=== PATIENT | male | born 1945 | race Two or more races ===

== ENCOUNTER 2016-07-27 18:14 | Inpatient (IN) | payer MEDICARE, SELFPAY ==
[2016-07-27] MEDS ORDERED: Albuterol/Ipratropium Neb 3 ML NEB NEB ONE (18:39)
[2016-07-27] MEDS ORDERED: METHYLPREDNISOLONE 125 MG/2 ML VIAL IV ONE (18:39)
[2016-07-27] MEDS ORDERED: NS 1,000 ML IV ONE ×2 (18:39→19:53)
[2016-07-27 18:48] LABS: ABG Draw Site Right Radial; ALLEN'S TEST PASS
[2016-07-27 19:11] LABS: AUTOMATED BASOPHIL 1.1 % (0-2); AUTOMATED EOSINOPHIL 10.1 % (0-5); AUTOMATED LYMPH 16.4 % (17-44); AUTOMATED MONOCYTE 5.4 % (3-10); MPV 8.7 fL (7.4-10.4)
--- NOTE | 2016-07-27 19:17 | DIRPT ---
CLINICAL DATA: Patient with cough and shortness of breath for 1 month. EXAM: PORTABLE CHEST 1 VIEW COMPARISON: Chest radiograph 05/10/2016. FINDINGS: Monitoring leads overlie the patient. Low lung volumes. Stable cardiomegaly. Bilateral mid and lower lung heterogeneous pulmonary opacities. No pleural effusion or pneumothorax. IMPRESSION: Low lung volumes. Bilateral mid and lower lung heterogeneous opacities may be secondary to atelectasis and bronchovascular crowding. Infectious process not excluded. Electronically Signed By: Nelson Gorman M.D. On: 07/27/2016 19:14
--- NOTE | 2016-07-27 19:20 | EDPRACDOC ---
- General Information Information Source: Patient - History of Present Illness Onset: 1 WEEK HPI: PT COMPLAINS OF INCREASING SOBR, NON-PROD COUGH, WHEEZING X 1 WEEK, USING NEBS WITHOUT RELIEF. PT DENIES FEVER OR CHILLS, NO N/V/D, NO CP. Shortness of Breath: Severe Relevant History: Reports: Asthma Cough: Reports: Non-productive Rhinorrhea: Denies: Clear, Bloody, Brown, Green, Purulent, None, O Ear Symptoms: Reports: None SOB Worsens with: Reports: Nothing SOB Improves with: Reports: Nothing Associated Signs and symptoms: Reports: Cough. Denies: Earache, Fever, Headache , Nasal Symptoms, Sore Throat, Nausea, Vomiting, Diarrhea, Myalgia, Rash, Pain with head movement, AMS <Chuy Ibrahim - Last Filed: 07/27/16 21:30> <Pipo Womack - Last Filed: 07/27/16 22:06> - General Information Chief Complaint: Dyspnea/Resp distress Stated Complaint: RESPIRATORY Time Seen by Provider: 07/27/16 18:36 Home Medications: Home Medications Glimepiride [Amaryl] 4 mg PO BID 08/18/15 Insulin Glargine [Lantus Pen] 40 units SQ BID 08/18/15 MetFORMIN (Immediate Release) [GLUCOPHAGE Immed Release] 1,000 mg PO BID Simvastatin [Zocor] 10 mg PO QHS 08/18/15 Carvedilol [Coreg] 12.5 mg PO BID #60 tablet 08/25/15 Furosemide [Lasix] 40 mg PO BID #60 tab 08/25/15 Amlodipine Besylate 10 mg PO DAILY 05/07/16 Losartan Potassium [Cozaar] 100 mg PO DAILY 05/07/16 Doxazosin Mesylate 1 mg PO DAILY 05/08/16 Potassium Chloride [Klor-Con M20] 20 meq PO DAILY 05/08/16 Albuterol/Ipratropium Neb [Duoneb] 3 ml NEB RTQ6 #120 nebu 05/13/16 Aspirin (Enteric Coated) [Ecotrin] 81 mg PO DAILY 07/27/16 Doxycycline Hyclate [Vibramycin] 100 mg PO BID 07/27/16 Allergies/Adverse Reactions: Allergies Allergy/AdvReac Type Severity Reaction Status Date / Time lisinopril Allergy Cough Verified 07/27/16 18:31 ED Past Medical History - History Reviewed Yes Nurses notes reviewed and agree except as marked - Patient Medical History Cardiac History: Reports: Hypertension, Congestive Heart Failure (Diastolic congestive heart failure although today his BMP is normal). Denies: Heart Attack Respiratory History: Reports: Asthma. Denies: Pneumonia GI/ History: Reports: Gastroesophageal Reflux Musculoskeletal History: Reports: Arthritis Psychological History: Denies: Depression, Anxiety, Substance Use Disorder Systemic History: Reports: Diabetes (Type 2). Denies: Cancer, Anemia, Hyperthyroidism Surgical History: Denies: Cholecystectomy, Tonsillectomy/Adnoidectomy - Family Medical History Reports: Hypertension (Brother), Diabetes (Sister). Denies: Cancer, Stroke, Cardiac Disorders - Social Medical History Smoking Status: Never smoker Social History: Denies: Substance Use Disorder ETOH: None Substance Abuse: None <Chuy Ibrahim - Last Filed: 07/27/16 21:30> EDM Review of Systems - Review of Systems Constitutional: negative: Chills, Fever Eyes: negative: Blurred Vision, Double Vision Ears: negative: Drainage Throat: negative: Pain Nose: negative: Congestion, Discharge Respiratory: Cough, Shortness of Breath, Wheezing Cardiovascular: negative: Chest Pain, Palpitations Gastrointestinal: negative: Diarrhea, Nausea, Pain, Vomiting Genitourinary: negative: Dysuria, Frequency Neurological: negative: Dizziness, Headache, Numbness, Weakness Musculoskeletal: No Symptoms Reported Integumentary: No Symptoms Reported <Chuy Ibrahim - Last Filed: 07/27/16 21:30> - Physical Exam Constitutional: Alert (Awake), No apparent distress Oriented to: Time, Person, Place Last recorded Vital Signs: Last Vital Signs Temp 98.4 F 07/27/16 18:27 Pulse 88 07/27/16 18:46 Resp 20 07/27/16 18:55 BP 152/70 07/27/16 18:46 Pulse Ox 94 07/27/16 18:46 Oxygen Pulse Oxygen Saturation 94 O2 Device Nasal Cannula Oxygen Flow Rate 2 Fraction of Inspired Oxygen ( FIO2) - HEENT Head: Normal ( normocephalic) Eye Exam: Normal (PERRL, EOMI, Sclera white) Oropharynx: Normal (Pharynx:Moist without exudate,Gums-no swelling) Tympanic Membrane: Normal ENT EAC: Normal TMJ: Normal Nose: No Symptoms Reported (septum midline) Neck: Normal (FROM, trachea at midline) - Respiratory/Cardiovascular Respiratory: Accessory Muscle Use, Wheezes Cardiovascular: Normal (RRR without murmur, gallop or rub) - GI Auscultation: Normal (NABS) Palpation: Normal (Soft,No rebound or guarding, non distended) Tenderness: Non tender Martins's Sign: Negative - Musculoskeletal Back: Normal (Non-Tender) Extremities: Normal (Normal tone, Pulses 2+ No cyanosis or edema, FROM) - Integumentary Skin: Normal, Warm, Dry Lymphatics: Normal (no adenopathy) - Neurologic Memory Impaired: Normal Motor Function: Normal (Normal tone, Pulses 2+ No cyanosis or edema, FROM) Cranial Nerve: Normal (CN II-X11 intact sensation, strength 5/5) Cerebellar: Normal Mood Description: Normal Perception: Normal <Chuy Ibrahim - Last Filed: 07/27/16 21:30> - Physical Exam Last recorded Vital Signs: Last Vital Signs Temp 98.4 F 07/27/16 18:27 Pulse 89 07/27/16 20:46 Resp 20 07/27/16 20:46 BP 149/69 07/27/16 20:46 Pulse Ox 91 07/27/16 20:46 Oxygen Pulse Oxygen Saturation 91 O2 Device Nasal Cannula Oxygen Flow Rate 2 Fraction of Inspired Oxygen ( FIO2) <Pipo Womack - Last Filed: 07/27/16 22:06> ED SOB MDM - Differential Diagnosis Differential Diagnosis: Heart Failure, Pnuemonia - Re-evaluation Re-evaluation 1 Re-evaluation Time: 19:48 (FEELS BETTER AFTER NEB) - Results Result Diagrams: 07/27/16 19:00 07/27/16 19:00 Results: WBC 8.4 xk/uL (3.8-10.8) 07/27/16 19:00 RBC 4.64 xM/uL (4.70-6.10) L 07/27/16 19:00 Hgb 11.8 g/dL (14.0-18.0) L 07/27/16 19:00 Hct 37.0 % (42-52) L 07/27/16 19:00 MCV 80 fL (80-94) 07/27/16 19:00 MCH 25.5 pg (27-32) L 07/27/16 19:00 MCHC 32.0 g/dl (33-36) L 07/27/16 19:00 RDW 16.4 % (11.5-14.5) H 07/27/16 19:00 Plt Count 206 xk/uL (130-400) 07/27/16 19:00 MPV 8.7 fL (7.4-10.4) 07/27/16 19:00 Neut % (Auto) 67.0 % (45-76) 07/27/16 19:00 Lymph % (Auto) 16.4 % (17-44) L 07/27/16 19:00 [place] % (Auto) 5.4 % (3-10) 07/27/16 19:00 Eos % (Auto) 10.1 % (0-5) H 07/27/16 19:00 Baso % (Auto) 1.1 % (0-2) 07/27/16 19:00 Absolute Neuts (auto) 5.63 xk/uL (1.7-8.2) 07/27/16 19:00 Absolute Lymphs (auto) 1.34 xk/uL (0.65-4.75) 07/27/16 19:00 Puncture Site Right radial 07/27/16 18:44 pH 7.380 pH UNITS (7.35-7.45) 07/27/16 18:44 pCO2 45.0 mmHg (35-45) 07/27/16 18:44 pO2 60.0 mmHg (80-100) L 07/27/16 18:44 HCO3 26.6 MMOL/L (22-26) H 07/27/16 18:44 Total CO2 28.0 MMOL/L (23-27) H 07/27/16 18:44 Base Excess 1.0 (+/- 2) 07/27/16 18:44 FiO2 % 21% 07/27/16 18:44 Specimen Drawn By Piksa 07/27/16 18:44 Lab Results 07/27/16 07/27/16 19:00 18:44 WBC 8.4 RBC 4.64 L Hgb 11.8 L Hct 37.0 L MCV 80 MCH 25.5 L MCHC 32.0 L RDW 16.4 H Plt Count 206 MPV 8.7 Neut % (Auto) 67.0 Lymph % (Auto) 16.4 L [place] % (Auto) 5.4 Eos % (Auto) 10.1 H Baso % (Auto) 1.1 Absolute Neuts (auto) 5.63 Absolute Lymphs (auto) 1.34 Puncture Site Right radial pH 7.380 pCO2 45.0 pO2 60.0 L HCO3 26.6 H Total CO2 28.0 H Base Excess 1.0 FiO2 % 21% Specimen Drawn By Piksa - EKG EKG #1 EKG Time: 18:42 -: Yes EKG interpreted by me Rate: bpm: 88 [place]: Normal Rhythm: NSR Block: RBBB Hypertrophy: None ST: Nonsp Comparison: 05/07/16 (NO CHANGE) - Diagnostic Imaging CXR Image interpreted by: Radiologist Diagnostic Imaging Comments: PORTABLE CHEST 1 VIEW COMPARISON: Chest radiograph 05/10/2016. FINDINGS: Monitoring leads overlie the patient. Low lung volumes. Stable cardiomegaly. Bilateral mid and lower lung heterogeneous pulmonary opacities. No pleural effusion or pneumothorax. IMPRESSION: Low lung volumes. Bilateral mid and lower lung heterogeneous opacities may be secondary to atelectasis and bronchovascular crowding. Infectious process not excluded. CTA CHEST Image interpreted by: Radiologist Diagnostic Imaging Comments: CT ANGIOGRAPHY CHEST WITH CONTRAST TECHNIQUE: Multidetector CT imaging of the chest was performed using the standard protocol during bolus administration of intravenous contrast. Multiplanar CT image reconstructions and MIPs were obtained to evaluate the vascular anatomy. CONTRAST: 100 mL Isovue 370 COMPARISON: 08/24/2015 FINDINGS: B pulmonary tear all phase contrast bolus is somewhat technically limited but there is still moderately good opacification of the central and proximal segmental pulmonary arteries. No filling defects are demonstrated in these vessels suggesting no evidence of significant pulmonary embolus. More distal peripheral pulmonary arteries are not well visualized. Normal heart size. Coronary artery calcifications. Normal caliber thoracic aorta with calcification. No aortic dissection. Esophagus is decompressed. There is lymphadenopathy throughout the mediastinum. Largest lymph nodes are present in the subcarinal region, measuring up to 2.7 cm short axis dimension. Lymphadenopathy was present previously with similar appearance to today's study. Evaluation of lungs is limited due to respiratory motion artifact. There appears to be diffuse peripheral interstitial pattern likely representing diffuse interstitial fibrosis due to usual interstitial pneumonitis. Interstitial edema or interstitial pneumonia or other possibilities. Interstitial changes were seen previously but airspace disease seen previously has resolved in the interval. There is a 3.5 mm nodule in the left lung base. This was obscured by infiltrates on the previous study and correlation is not possible. If the patient is at high risk for bronchogenic carcinoma, follow-up chest CT at 1 year is recommended. If the patient is at low risk, no follow-up is needed. This recommendation follows the consensus statement: Guidelines for Management of Small Pulmonary Nodules Detected on CT Scans: A Statement from the Fleischner Society as published in Radiology 2005; 237:395-400. Scattered calcified granulomas are demonstrated in the lungs. No focal consolidation or volume loss. No pleural effusions. No pneumothorax. Included portions of the upper abdominal organs demonstrate enlarged liver likely due to fatty infiltration. Degenerative changes in the spine. No destructive bone lesions. Review of the MIP images confirms the above findings. IMPRESSION: Contrast bolus is limited but there is no evidence of significant central pulmonary embolus. There is diffuse lymphadenopathy in the mediastinum similar to previous study. Etiology is indeterminate. Diffuse mostly peripheral interstitial pattern to the lungs may represent usual interstitial pneumonitis. Superimposed edema is not excluded. 3.5 mm nodule in the left lung base is indeterminate. See above followup recommendations. Fatty infiltration of the liver. - Additional Information Additional Information: DISCUSSED WITH DR WOMACK, WILL DISCUSS WITH HOSPITALIST <Chuy Ibrahim - Last Filed: 07/27/16 21:30> - Results Result Diagrams: 07/27/16 19:00 07/27/16 19:00 Results: WBC 8.4 xk/uL (3.8-10.8) 07/27/16 19:00 RBC 4.64 xM/uL (4.70-6.10) L 07/27/16 19:00 Hgb 11.8 g/dL (14.0-18.0) L 07/27/16 19:00 Hct 37.0 % (42-52) L 07/27/16 19:00 MCV 80 fL (80-94) 07/27/16 19:00 MCH 25.5 pg (27-32) L 07/27/16 19:00 MCHC 32.0 g/dl (33-36) L 07/27/16 19:00 RDW 16.4 % (11.5-14.5) H 07/27/16 19:00 Plt Count 206 xk/uL (130-400) 07/27/16 19:00 MPV 8.7 fL (7.4-10.4) 07/27/16 19:00 Neut % (Auto) 67.0 % (45-76) 07/27/16 19:00 Lymph % (Auto) 16.4 % (17-44) L 07/27/16 19:00 [place] % (Auto) 5.4 % (3-10) 07/27/16 19:00 Eos % (Auto) 10.1 % (0-5) H 07/27/16 19:00 Baso % (Auto) 1.1 % (0-2) 07/27/16 19:00 Absolute Neuts (auto) 5.63 xk/uL (1.7-8.2) 07/27/16 19:00 Absolute Lymphs (auto) 1.34 xk/uL (0.65-4.75) 07/27/16 19:00 PT 10.7 SEC (9.2-11.2) 07/27/16 19:00 INR 1.0 07/27/16 19:00 APTT 23.6 SEC (22-35) 07/27/16 19:00 Puncture Site Right radial 07/27/16 18:44 pH 7.380 pH UNITS (7.35-7.45) 07/27/16 18:44 pCO2 45.0 mmHg (35-45) 07/27/16 18:44 pO2 60.0 mmHg (80-100) L 07/27/16 18:44 HCO3 26.6 MMOL/L (22-26) H 07/27/16 18:44 Total CO2 28.0 MMOL/L (23-27) H 07/27/16 18:44 Base Excess 1.0 (+/- 2) 07/27/16 18:44 FiO2 % 21% 07/27/16 18:44 Specimen Drawn By Piksa 07/27/16 18:44 Sodium 140 mEq/L (137-146) 07/27/16 19:00 Potassium 4.3 mEq/L (3.5-5.1) 07/27/16 19:00 Chloride 101 mEq/L (98-107) 07/27/16 19:00 Carbon Dioxide 28 mMOL/L (22-33) 07/27/16 19:00 Anion Gap 15 mEq/L (8-16) 07/27/16 19:00 BUN 12 MG/DL (9-20) 07/27/16 19:00 Creatinine 0.90 MG/DL (0.66-1.25) 07/27/16 19:00 Estimated GFR (MDRD) > 60 mL/min (>=60) 07/27/16 19:00 Glucose 339 MG/DL (70-99) H 07/27/16 19:00 Calculated Osmolality 282 MOs/Kg (270-290) 07/27/16 19:00 Lactic Acid 3.4 mEq/L (0.7-2.1) H 07/27/16 19:00 Calcium 8.7 MG/DL (8.4-10.2) 07/27/16 19:00 Corrected Calcium 8.9 MG/DL (8.4-10.2) 07/27/16 19:00 Total Bilirubin 0.4 MG/DL (0.2-1.3) 07/27/16 19:00 AST 19 IU/L (17-59) 07/27/16 19:00 ALT 29 IU/L (21-72) 07/27/16 19:00 Alkaline Phosphatase 76 IU/L (50-160) 07/27/16 19:00 Troponin I < 0.01 ng/mL (<.04) 07/27/16 19:00 Xul-O-Grvagwdfylt Pept 94 pg/mL (0-900) 07/27/16 21:32 Total Protein 7.4 G/DL (6.3-8.2) 07/27/16 19:00 Albumin 3.8 G/DL (3.5-5.0) 07/27/16 19:00 Lab Results 07/27/16 07/27/16 07/27/16 21:32 19:00 19:00 WBC 8.4 RBC 4.64 L Hgb 11.8 L Hct 37.0 L MCV 80 MCH 25.5 L MCHC 32.0 L RDW 16.4 H Plt Count 206 MPV 8.7 Neut % (Auto) 67.0 Lymph % (Auto) 16.4 L [place] % (Auto) 5.4 Eos % (Auto) 10.1 H Baso % (Auto) 1.1 Absolute Neuts (auto) 5.63 Absolute Lymphs (auto) 1.34 PT 10.7 INR 1.0 APTT 23.6 Puncture Site pH pCO2 pO2 HCO3 Total CO2 Base Excess FiO2 % Specimen Drawn By Sodium Potassium Chloride Carbon Dioxide Anion Gap BUN Creatinine Estimated GFR (MDRD) Glucose Calculated Osmolality Lactic Acid Calcium Corrected Calcium Total Bilirubin AST ALT Alkaline Phosphatase Troponin I Hhg-O-Xsrglexthtx Pept 94 Total Protein Albumin 07/27/16 07/27/16 07/27/16 19:00 19:00 18:44 WBC RBC Hgb Hct MCV MCH MCHC RDW Plt Count MPV Neut % (Auto) Lymph % (Auto) [place] % (Auto) Eos % (Auto) Baso % (Auto) Absolute Neuts (auto) Absolute Lymphs (auto) PT INR APTT Puncture Site Right radial pH 7.380 pCO2 45.0 pO2 60.0 L HCO3 26.6 H Total CO2 28.0 H Base Excess 1.0 FiO2 % 21% Specimen Drawn By Piksa Sodium 140 Potassium 4.3 Chloride 101 Carbon Dioxide 28 Anion Gap 15 BUN 12 Creatinine 0.90 Estimated GFR (MDRD) > 60 Glucose 339 H Calculated Osmolality 282 Lactic Acid 3.4 H Calcium 8.7 Corrected Calcium 8.9 Total Bilirubin 0.4 AST 19 ALT 29 Alkaline Phosphatase 76 Troponin I < 0.01 Bjz-Y-Lfqkxbkztyc Pept Total Protein 7.4 Albumin 3.8 <Pipo Womack - Last Filed: 07/27/16 22:06> <Chuy Ibrahim - Last Filed: 07/27/16 21:30> - Departure Yes I personally saw and evaluated the patient. Disposition: Admit IP To This Hospital Education/Counseling Given To: Patient Education/Counseling Given Regarding: Diagnosis, Treatment, Prognosis Decision to Admit Time: 22:06 Decision to admit date: 07/27/16 Decision to admit: from ED - Physician Consulted Hospitalist Time Called: 22:06 Provider Called: Bruce Doe Time [employer] Returned Call: 22:06 <Pipo Womack - Last Filed: 07/27/16 22:06> - Departure Condition: Stable Final Diagnosis: Interstitial pneumonitis, Hypoxia Referrals: Jose Khan MD [Primary Care Provider] - One Week Prescriptions: No Action Glimepiride [Amaryl] 4 mg PO BID MetFORMIN (Immediate Release) [GLUCOPHAGE Immed Release] 1,000 mg PO BID Simvastatin [Zocor] 10 mg PO QHS Insulin Glargine [Lantus Pen] 40 units SQ BID Carvedilol [Coreg] 12.5 mg PO BID #60 tablet Furosemide [Lasix] 40 mg PO BID #60 tab Losartan Potassium [Cozaar] 100 mg PO DAILY Amlodipine Besylate 10 mg PO DAILY Potassium Chloride [Klor-Con M20] 20 meq PO DAILY Doxazosin Mesylate 1 mg PO DAILY Albuterol/Ipratropium Neb [Duoneb] 3 ml NEB RTQ6 #120 nebu Aspirin (Enteric Coated) [Ecotrin] 81 mg PO DAILY Doxycycline Hyclate [Vibramycin] 100 mg PO BID
[2016-07-27 19:21] LABS: BLOOD UREA NITROGEN 12 MG/DL (9-20); CALC CORRECTED 8.9 MG/DL (8.4-10.2); CALCIUM 8.7 MG/DL (8.4-10.2); CALCULATED OSMOLALITY 282 MOs/Kg (270-290); CHLORIDE 101 mEq/L (98-107); GLUCOSE 339 MG/DL (70-99); SODIUM LEVEL 140 mEq/L (137-146); TOTAL PROTEIN 7.4 G/DL (6.3-8.2)
[2016-07-27 19:23] LABS: PARTIAL THROMB. TIME 23.6 SEC (22-35)
[2016-07-27] MEDS ORDERED: Levofloxacin 500 mg/100 ml D5W 500 MG/100 ML RTU IV ONE (19:53)
[2016-07-27] MEDS ORDERED: Pharmacy Review for Metformin - IV Contrast Given SCH (21:00)
--- NOTE | 2016-07-27 21:14 | DIRPT ---
CLINICAL DATA: Shortness of breath for 2 days. History of CHF, hypertension, diabetes. EXAM: CT ANGIOGRAPHY CHEST WITH CONTRAST TECHNIQUE: Multidetector CT imaging of the chest was performed using the standard protocol during bolus administration of intravenous contrast. Multiplanar CT image reconstructions and MIPs were obtained to evaluate the vascular anatomy. CONTRAST: 100 mL Isovue 370 COMPARISON: 08/24/2015 FINDINGS: B pulmonary tear all phase contrast bolus is somewhat technically limited but there is still moderately good opacification of the central and proximal segmental pulmonary arteries. No filling defects are demonstrated in these vessels suggesting no evidence of significant pulmonary embolus. More distal peripheral pulmonary arteries are not well visualized. Normal heart size. Coronary artery calcifications. Normal caliber thoracic aorta with calcification. No aortic dissection. Esophagus is decompressed. There is lymphadenopathy throughout the mediastinum. Largest lymph nodes are present in the subcarinal region, measuring up to 2.7 cm short axis dimension. Lymphadenopathy was present previously with similar appearance to today's study. Evaluation of lungs is limited due to respiratory motion artifact. There appears to be diffuse peripheral interstitial pattern likely representing diffuse interstitial fibrosis due to usual interstitial pneumonitis. Interstitial edema or interstitial pneumonia or other possibilities. Interstitial changes were seen previously but airspace disease seen previously has resolved in the interval. There is a 3.5 mm nodule in the left lung base. This was obscured by infiltrates on the previous study and correlation is not possible. If the patient is at high risk for bronchogenic carcinoma, follow-up chest CT at 1 year is recommended. If the patient is at low risk, no follow-up is needed. This recommendation follows the consensus statement: Guidelines for Management of Small Pulmonary Nodules Detected on CT Scans: A Statement from the Fleischner Society as published in Radiology 2005; 237:395-400. Scattered calcified granulomas are demonstrated in the lungs. No focal consolidation or volume loss. No pleural effusions. No pneumothorax. Included portions of the upper abdominal organs demonstrate enlarged liver likely due to fatty infiltration. Degenerative changes in the spine. No destructive bone lesions. Review of the MIP images confirms the above findings. IMPRESSION: Contrast bolus is limited but there is no evidence of significant central pulmonary embolus. There is diffuse lymphadenopathy in the mediastinum similar to previous study. Etiology is indeterminate. Diffuse mostly peripheral interstitial pattern to the lungs may represent usual interstitial pneumonitis. Superimposed edema is not excluded. 3.5 mm nodule in the left lung base is indeterminate. See above followup recommendations. Fatty infiltration of the liver. Electronically Signed By: Mejia Le M.D. On: 07/27/2016 21:12
[2016-07-27 22:46] LABS: LEUKOCYTES/URINE NEG (NEGATIVE); NITRITE/URINE NEG (NEGATIVE); RBC/URINE 0-2 (0-2); URINE OCCULT BLOOD NEG (NEG/TRACE); WBC/URINE 0-2 (0-2)
--- NOTE | 2016-07-27 23:45 | HISTPHYS ---
- Chief Complaint shortness of breath - History of Present Illness PRIMARY CARE PROVIDER: Dr. Khan HPI: The patient is a 70 yo man, life-long non-smoker, who presents with shortness of breath and severe coughing. Mild chest pain but only when he coughs. He reports that he has had other episodes of the severe coughing with shortness of breath, and was hospitalized for it several years ago, but he thinks that it was never really determined what was causing the problem. A former primary care physician told him that it was due to allergies and from breathing the air in [facility] (where he lived until about 3 years ago). He was also told that he has asthma, but he does not believe that; he had an old inhaler at his house and started using it recently because he was more short of breath. He has been tested for sleep apnea, and reports that he did try a mask, but he just does not believe he has sleep apnea (although he reports the test was positive). He states that he wants to get to the bottom of this mystery of what is causing these periodic episodes of severe coughing and shortness of breath. Onset: Shortness of breath became severe and coughing became severe today. Worsening over the last week. Chest pain most recently last night. Worse over the last 3 years since he moved from [facility]. Duration: intermittent. Location: entire anterior chest. Radiation: to back. Character: 02/06. Is only with cough. Is sharp. Alleviated by: Nothing. Exacerbated by: coughing. Associated Symptoms: Cough is non-productive most of the time - can have fits of coughing that are so severe that his family looks at him and wonders what is happening. Sometimes does have thick sputum. Wheezing. He has never seen anybody do something like he does when he gets a coughing fit. Sometimes worse with lying flat but not all the time. Sometimes it sounds like he has "a little cat inside saying 'whee, whee.'" Occasional lower extremity edema but not severe. No major weight changes. Treatments: He was given a prescription for doxycycline for his respiratory infection and has been taking it. Same thing happened 2 years ago. Had severe coughing. Will get better for awhile and then 3 months later or so it will get worse again. Was told he had asthma around 30 yo. It seemed to resolve but now he has worsening shortness of breath. - Medical History Cardiac History: Reports: Hypertension, Congestive Heart Failure (Diastolic congestive heart failure (hx of)). Denies: Heart Attack Respiratory History: Reports: Asthma (at 30 yo, resolved, then returned.). Denies: Pneumonia GI/ History: Reports: Gastroesophageal Reflux Musculoskeletal History: Reports: Arthritis Systemic History: Reports: Diabetes (Type 2) - Medictions/Allergies Allergies lisinopril Allergy (Verified 07/27/16 18:31) Cough Current Medication List: Reviewed Home Medications Glimepiride [Amaryl] 4 mg PO BID 08/18/15 Insulin Glargine [Lantus Pen] 40 units SQ BID 08/18/15 MetFORMIN (Immediate Release) [GLUCOPHAGE Immed Release] 1,000 mg PO BID Simvastatin [Zocor] 10 mg PO QHS 08/18/15 Carvedilol [Coreg] 12.5 mg PO BID #60 tablet 08/25/15 Furosemide [Lasix] 40 mg PO BID #60 tab 08/25/15 Amlodipine Besylate 10 mg PO DAILY 05/07/16 Losartan Potassium [Cozaar] 100 mg PO DAILY 05/07/16 Doxazosin Mesylate 1 mg PO DAILY 05/08/16 Potassium Chloride [Klor-Con M20] 20 meq PO DAILY 05/08/16 Albuterol/Ipratropium Neb [Duoneb] 3 ml NEB RTQ6 #120 nebu 05/13/16 Aspirin (Enteric Coated) [Ecotrin] 81 mg PO DAILY 07/27/16 Doxycycline Hyclate [Vibramycin] 100 mg PO BID 07/27/16 - Family History Reports: Hypertension (Brother), Diabetes (Sister) - Social History Smoking Status: Never smoker Social History: Denies: Alcohol Use, Substance Use Disorder - Review of Systems GENERAL: No Fever, chills, or diaphoresis. Positive for fatigue/malaise. HEENT: No nasal discharge or bleeding. No throat pain or swelling. No eye pain or eye redness. RESPIRATORY: Cough, wheezing, shortness of breath. CARDIOVASCULAR: Chest pain with coughing. No palpitations. GI: No abdominal pain, nausea, vomiting, diarrhea, constipation, or bloody stool. NEUROLOGICAL: No headache or focal weakness. INTEGUMENT: no rashes, itching, or lesions. LYMPHATIC SYSTEM: no lymph node swelling or pain. MUSCULOSKELETAL: no new pain or joint swelling. GENITOURINARY: No dysuria or hematuria. ENDOCRINE: No polyuria or polydipsia. HEME: No chronic anemia, bleeding, or easy bruising. - Physical Exam Vital Signs: Initial Vitals Temperature 98.4 F 07/27/16 18:27 Pulse Rate 84 07/27/16 18:27 Respiratory Rate 22 07/27/16 18:27 Blood Pressure 163/72 07/27/16 18:27 Pulse Oxygen Saturation 89 L 07/27/16 18:27 Weight: 91.8 kg Height: 5 feet 7 inches BMI: 31.7 - Other Exam Other Exam Findings: GENERAL: Ill-appearing, obese, in acute distress. HEENT: Normocephalic, atraumatic; pupils equal and round. Nares patent, without discharge or bleeding. No oropharyngeal lesions or erythema. Mucous membranes are dry. NECK: is supple, no masses, trachea midline. Large neck circumference. RESPIRATORY: Clear to auscultation bilaterally. Chest wall movements are symmetric. No use of accessory muscles to breathe. Tachypnea. Bilateral rales. Decreased breath sounds. CARDIOVASCULAR: Normal S1, S2. No rubs, or gallops. PMI non-displaced. Carotids : no carotid bruits. No bradycardia or tachycardia. DP pulses 2+ bilaterally. GI: soft, nontender, non-distended, normal active bowel sounds. No hepatosplenomegaly. INTEGUMENT: Clean, dry, and intact. No rashes. No lesions. MUSCULOSKELETAL: Moving all extremities. No cyanosis. No clubbing. Edema: Trace lower extremity edema bilaterally. NEUROLOGICAL: Cranial nerves 2-12 grossly intact. Motor 4/5 throughout. Reflexes : 2+ bilaterally. Babinski: toes downgoing bilaterally. Intact Finger to nose. Sensory grossly intact to light touch. Intact rapid alternating movements bilaterally. No pronator drift. PSYCHIATRIC: Fully oriented. Normal and appropriate affect. LYMPHATIC: No cervical lymphadenopathy. No supraclavicular lymphadenopathy. - Lab Results Laboratory Results - last 24 hr 07/27/16 07/27/16 07/27/16 18:44 19:00 19:00 WBC RBC Hgb Hct MCV MCH MCHC RDW Plt Count MPV Neut % (Auto) Lymph % (Auto) [place] % (Auto) Eos % (Auto) Baso % (Auto) Absolute Neuts (auto) Absolute Lymphs (auto) PT INR APTT Puncture Site Right radial pH 7.380 pCO2 45.0 pO2 60.0 L HCO3 26.6 H Total CO2 28.0 H Base Excess 1.0 FiO2 % 21% Specimen Drawn By [place] Sodium 140 Potassium 4.3 Chloride 101 Carbon Dioxide 28 Anion Gap 15 BUN 12 Creatinine 0.90 Estimated GFR (MDRD) > 60 Glucose 339 H POC Capillary Glucose Hemoglobin A1c Calculated Osmolality 282 Lactic Acid 3.4 H Calcium 8.7 Corrected Calcium 8.9 Total Bilirubin 0.4 AST 19 ALT 29 Alkaline Phosphatase 76 Troponin I < 0.01 [id number]-Yynmtysktce Pept Total Protein 7.4 Albumin 3.8 Urine Color Urine Clarity Urine pH Ur Specific [place] Urine Protein Urine Glucose (UA) Urine Ketones Urine Occult Blood Urine Nitrite Urine Bilirubin Urine Urobilinogen Ur Leukocyte Esterase Urine RBC Urine WBC 07/27/16 07/27/16 07/27/16 19:00 19:00 21:32 WBC 8.4 RBC 4.64 L Hgb 11.8 L Hct 37.0 L MCV 80 MCH 25.5 L MCHC 32.0 L RDW 16.4 H Plt Count 206 MPV 8.7 Neut % (Auto) 67.0 Lymph % (Auto) 16.4 L [place] % (Auto) 5.4 Eos % (Auto) 10.1 H Baso % (Auto) 1.1 Absolute Neuts (auto) 5.63 Absolute Lymphs (auto) 1.34 PT 10.7 INR 1.0 APTT 23.6 Puncture Site pH pCO2 pO2 HCO3 Total CO2 Base Excess FiO2 % Specimen Drawn By Sodium Potassium Chloride Carbon Dioxide Anion Gap BUN Creatinine Estimated GFR (MDRD) Glucose POC Capillary Glucose Hemoglobin A1c Calculated Osmolality Lactic Acid Calcium Corrected Calcium Total Bilirubin AST ALT Alkaline Phosphatase Troponin I [id number]-Txpeiqrshoj Pept 94 Total Protein Albumin Urine Color Urine Clarity Urine pH Ur Specific [place] Urine Protein Urine Glucose (UA) Urine Ketones Urine Occult Blood Urine Nitrite Urine Bilirubin Urine Urobilinogen Ur Leukocyte Esterase Urine RBC Urine WBC 07/27/16 07/27/16 07/27/16 22:19 22:30 23:15 WBC RBC Hgb Hct MCV MCH MCHC RDW Plt Count MPV Neut % (Auto) Lymph % (Auto) [place] % (Auto) Eos % (Auto) Baso % (Auto) Absolute Neuts (auto) Absolute Lymphs (auto) PT INR APTT Puncture Site pH pCO2 pO2 HCO3 Total CO2 Base Excess FiO2 % Specimen Drawn By Sodium Potassium Chloride Carbon Dioxide Anion Gap BUN Creatinine Estimated GFR (MDRD) Glucose POC Capillary Glucose Hemoglobin A1c Calculated Osmolality Lactic Acid 2.8 H Calcium Corrected Calcium Total Bilirubin AST ALT Alkaline Phosphatase Troponin I < 0.01 [id number] Pept Total Protein Albumin Urine Color Yellow Urine Clarity Clear Urine pH 6.0 Ur Specific [place] 1.010 Urine Protein 2+ H Urine Glucose (UA) 3+ Urine Ketones Neg Urine Occult Blood Neg Urine Nitrite Neg Urine Bilirubin Neg Urine Urobilinogen <2.0 Ur Leukocyte Esterase Neg Urine RBC 0-2 Urine WBC 0-2 - Diagnostic Findings EK beats per minute. Normal sinus rhythm. Right bundle branch block. Reviewed EKG personally. Chest x-ray, viewed personally: EXAM: PORTABLE CHEST 1 VIEW COMPARISON: Chest radiograph 05/10/2016. FINDINGS: Monitoring leads overlie the patient. Low lung volumes. Stable cardiomegaly. Bilateral mid and lower lung heterogeneous pulmonary opacities. No pleural effusion or pneumothorax. IMPRESSION: Low lung volumes. Bilateral mid and lower lung heterogeneous opacities may be secondary to atelectasis and bronchovascular crowding. Infectious process not excluded. CTA Chest: EXAM: CT ANGIOGRAPHY CHEST WITH CONTRAST TECHNIQUE: Multidetector CT imaging of the chest was performed using the standard protocol during bolus administration of intravenous contrast. Multiplanar CT image reconstructions and MIPs were obtained to evaluate the vascular anatomy. CONTRAST: 100 mL Isovue 370 COMPARISON: 08/24/2015 FINDINGS: B pulmonary tear all phase contrast bolus is somewhat technically limited but there is still moderately good opacification of the central and proximal segmental pulmonary arteries. No filling defects are demonstrated in these vessels suggesting no evidence of significant pulmonary embolus. More distal peripheral pulmonary arteries are not well visualized. Normal heart size. Coronary artery calcifications. Normal caliber thoracic aorta with calcification. No aortic dissection. Esophagus is decompressed. There is lymphadenopathy throughout the mediastinum. Largest lymph nodes are present in the subcarinal region, measuring up to 2.7 cm short axis dimension. Lymphadenopathy was present previously with similar appearance to today's study. Evaluation of lungs is limited due to respiratory motion artifact. There appears to be diffuse peripheral interstitial pattern likely representing diffuse interstitial fibrosis due to usual interstitial pneumonitis. Interstitial edema or interstitial pneumonia or other possibilities. Interstitial changes were seen previously but airspace disease seen previously has resolved in the interval. There is a 3.5 mm nodule in the left lung base. This was obscured by infiltrates on the previous study and correlation is not possible. If the patient is at high risk for bronchogenic carcinoma, follow-up chest CT at 1 year is recommended. If the patient is at low risk, no follow-up is needed. This recommendation follows the consensus statement: Guidelines for Management of Small Pulmonary Nodules Detected on CT Scans: A Statement from the Fleischner Society as published in Radiology 2005; 237:395-400. Scattered calcified granulomas are demonstrated in the lungs. No focal consolidation or volume loss. No pleural effusions. No pneumothorax. Included portions of the upper abdominal organs demonstrate enlarged liver likely due to fatty infiltration. Degenerative changes in the spine. No destructive bone lesions. Review of the MIP images confirms the above findings. IMPRESSION: Contrast bolus is limited but there is no evidence of significant central pulmonary embolus. There is diffuse lymphadenopathy in the mediastinum similar to previous study. Etiology is indeterminate. Diffuse mostly peripheral interstitial pattern to the lungs may represent usual interstitial pneumonitis. Superimposed edema is not excluded. 3.5 mm nodule in the left lung base is indeterminate. See above followup recommendations. Fatty infiltration of the liver. - Assessment (1) Interstitial lung disease J84.9 - INTERSTITIAL PULMONARY DISEASE, UNSPECIFIED Acute Present on Admission: Yes CT scan suggests interstitial lung disease. May be the etiology of his recurrent shortness of breath. Plan: IV methylprednisolone. Consider pulmonology consult. Will need further workup. (2) Hypoxemia R09.02 - HYPOXEMIA Acute Present on Admission: Yes Plan: Patient was tachypneic on NC O2. Change to Venti mask 40% and increase as needed. (3) Lactic acid acidosis E87.2 - ACIDOSIS Acute Present on Admission: Yes Etiology unclear. Plan: Cultures ordered. Monitor for infection. Patient had been taking doxycycline as an outpatient. IV Levaquin empirically. (4) Abnormal CT scan, chest R93.8 - ABNORMAL FINDINGS ON DIAGNOSTIC IMAGING OF BODY STRUCTURES Acute Present on Admission: Yes IMPRESSION: Contrast bolus is limited but there is no evidence of significant central pulmonary embolus. There is diffuse lymphadenopathy in the mediastinum similar to previous study. Etiology is indeterminate. Diffuse mostly peripheral interstitial pattern to the lungs may represent usual interstitial pneumonitis. Superimposed edema is not excluded. 3.5 mm nodule in the left lung base is indeterminate. See above followup recommendations. Fatty infiltration of the liver Plan: Patient informed of results. Follow up with primary care and rn acute care for further evaluation. (5) Asthma, mild intermittent J45.20 - MILD INTERMITTENT ASTHMA, UNCOMPLICATED Acute Present on Admission: Yes Qualifiers: Asthma complication type: with acute exacerbation Qualified Code(s): J45.21 - Mild intermittent asthma with (acute) exacerbation Asthma exacerbation. Cough variant. Patient does not believe this is his diagnosis. Suspect asthma is contributing. Plan: Nebs. IV methylprednisolone. Consult rn acute care. (6) Obstructive sleep apnea G47.33 - OBSTRUCTIVE SLEEP APNEA (ADULT) (PEDIATRIC) Acute Present on Admission: Yes Patient also does not believe he has this diagnosis. Plan: CPAP at night. Follow up with Dr. Lafleur. - Plan Patient is very interested in the cause of his recurrent episodes of coughing and shortness of breath. Recommend rn acute care evaluate patient and discuss the possible diagnoses with him. Also recommend rn acute care explain to patient that he does have MARÍA (if in fact the study was positive). Case Care Discussed with: Patient, Nursing Staff Total Time: 60 min.
[2016-07-28] MEDS ORDERED: BENZONATATE 100 MG PERLES PO PRN (01:34)
[2016-07-28] MEDS ORDERED: GUAIFEN 100 MG-DEXTROMETH 10 MG PER 5 ML PO PRN (01:34)
[2016-07-28] MEDS ORDERED: TEMAZEPAM 15 MG CAP PO PRN (01:34)
[2016-07-28] MEDS ORDERED: ONDANSETRON HCL 4 MG/2 ML VIAL IV PRN (01:34)
[2016-07-28] MEDS ORDERED: Docusate Sodium 100 MG CAP PO PRN (01:34)
[2016-07-28] MEDS ORDERED: GLUCOSE (ORAL GEL) 15 GM TUBE PO PRN (01:34)
[2016-07-28] MEDS ORDERED: ACETAMINOPHEN 325 MG/TAB TABLET PO PRN (01:34)
[2016-07-28] MEDS ORDERED: SIMETHICONE 80 MG TAB PO PRN (01:34)
[2016-07-28] MEDS ORDERED: DEXTROSE 25 GM/50 ML PFS IV PRN (01:34)
[2016-07-28] MEDS ORDERED: GLUCAGON 1 MG VIAL SQ PRN (01:34)
[2016-07-28] MEDS ORDERED: ALBUTEROL 0.083% 3 ML NEB NEB PRN (01:34)
[2016-07-28] MEDS ORDERED: ACETAMINOPHEN 325 MG SUPP PR PRN (01:34)
[2016-07-28] MEDS ORDERED: PROMETHAZINE 25 MG/ML VIAL IV PRN (01:34)
[2016-07-28] MEDS ORDERED: BISACODYL 5 MG TAB PO PRN (01:34)
[2016-07-28] MEDS ORDERED: SENNA CONCENTRATE TAB PO PRN (01:34)
[2016-07-28] MEDS ORDERED: GLARGINE INSULIN (LANTUS) 100 UNITS/ML PEN SQ SCH ×3 (02:00→09:00)
[2016-07-28 02:38] LABS: MPV 8.8 fL (7.4-10.4)
[2016-07-28] MEDS: Albuterol/Ipratropium Neb 3 ML NEB NEB SCH ×4 (02:40→19:48)
[2016-07-28 02:43] LABS: BLOOD UREA NITROGEN 13 MG/DL (9-20); CALC CORRECTED 8.6 MG/DL (8.4-10.2); CALCIUM 8.3 MG/DL (8.4-10.2); CALCULATED OSMOLALITY 286 MOs/Kg (270-290); CHLORIDE 102 mEq/L (98-107); SODIUM LEVEL 139 mEq/L (137-146); TOTAL PROTEIN 7.3 G/DL (6.3-8.2)
[2016-07-28 02:52] LABS: GLUCOSE 430 MG/DL (70-99)
[2016-07-28] MEDS: REGULAR INSULIN 100 UNITS/ML - 3 ML VIAL SQ SCH ×8 (02:53→23:38)
[2016-07-28] MEDS: ENOXAPARIN 40 MG/0.4 ML PFS SQ SCH ×2 (02:54→20:51)
[2016-07-28] MEDS ORDERED: Vaccine Screening Complete SCH (04:00)
[2016-07-28] MEDS ORDERED: REGULAR INSULIN 100 UNITS/ML - 3 ML VIAL SQ SCH (07:00)
[2016-07-28] MEDS: CARVEDILOL 12.5 MG TAB PO SCH ×2 (08:33→20:50)
[2016-07-28] MEDS: FUROSEMIDE 40 MG TAB PO SCH ×2 (08:33→17:33)
[2016-07-28] MEDS: AMLODIPINE 10 MG TAB PO SCH (08:34)
[2016-07-28] MEDS: LOSARTAN POTASSIUM 50 MG TAB PO SCH (08:34)
[2016-07-28] MEDS ORDERED: DOXAZOSIN MESYLATE 1 MG TAB PO SCH (09:00)
[2016-07-28] MEDS ORDERED: Non-Formulary Medication ITEM (Losartan Potassium [Cozaar] 100 MG) PO SCH (09:00)
--- NOTE | 2016-07-28 10:47 | GENMEDPROG ---
Subjective Note: Patient in bed responsive follows commands. Short of breath tight in the chest and wheezy. Coughing producing small of sputum no hemoptysis. blod ssugar on higher side.denies any pains. Notes Reviewed: Yes Events from last night noted and discussed with Clinical Staff Current Medication List: Reviewed Currently: Reports: Cough, Wheezing, BEAVERS, SOB, Sputum, Reflux Sx DVT Prophylaxis: Yes - Physical Examination Vital Signs and I&O: Last Vital Signs Temp 97.6 F 07/28/16 08:02 Pulse 95 07/28/16 08:02 Resp 22 07/28/16 08:02 BP 143/72 07/28/16 08:02 Pulse Ox 99 07/28/16 08:02 Oxygen Pulse Oxygen Saturation 99 O2 Device Nasal Cannula Oxygen Flow Rate 2 Fraction of Inspired Oxygen ( 40 FIO2) Intake & Output 07/25/16 07/26/16 07/27/16 07/28/16 23:59 23:59 23:59 23:59 Intake Total 2100 Output Total 1650 Balance 450 Patient's weight 91.824 kg General: Alert, Oriented x3, Cooperative, Mild distress HEENT: Normal, PERRLA, EOMI, Anicteric Sclera Neck: Non-tender, No Masses palpable, Limited range of motion Lymphatics: Normal (no adenopathy) Respiratory: Accessory Muscle Use, Wheezes Cardiovascular: Regular rate, Normal S1, Normal S2, Murmurs GI: Normal bowel sounds, Soft, Non tender Extremities/Musculoskeletal: Normal pulses, DJD Skin: Warm,Dry and Intact, No rashes, No breakdown, No significant lesion Neurological: Normal speech, Normal tone, Cranial nerves 3-12 NL Psych/Mental Status: Anxious Allergies lisinopril Allergy (Verified 07/27/16 18:31) Cough 07/28/16 02:10 07/28/16 02:10 - Assessment (1) Acute and chronic respiratory failure with hypoxia Acute J96.21 - ACUTE AND CHRONIC RESPIRATORY FAILURE WITH HYPOXIA Comment/ Plan: Continue O2 nebs and pulmonary toilet. Continue IV steroids. Consult Pulmonary. Add inhaled steroids. (2) Pulmonary fibrosis Acute J84.10 - PULMONARY FIBROSIS, UNSPECIFIED Comment/Plan: Continue IV steroids again consult Pulmonary. Continue nebs and inhaled steroids as well. Add Singulair. (3) Type 2 diabetes mellitus with hyperglycemia Chronic E11.65 - TYPE 2 DIABETES MELLITUS WITH HYPERGLYCEMIA Qualifiers: Diabetes mellitus custodial insulin use: with custodial use Qualified Code( s): E11.65 - Type 2 diabetes mellitus with hyperglycemia; Z79.4 - USP ( current) use of insulin Comment/Plan: Poorly controlled, hemoglobin A1c 11.9. Adjust insulin continue ADA diet. (4) HTN (hypertension) Acute I10 - ESSENTIAL (PRIMARY) HYPERTENSION Qualifiers: Hypertension type: essential hypertension Qualified Code(s): I10 - Essential (primary) hypertension Comment/Plan: Continue meds keep SBP less than 140 (5) GERD (gastroesophageal reflux disease) Acute K21.9 - GASTRO-ESOPHAGEAL REFLUX DISEASE WITHOUT ESOPHAGITIS Qualifiers: Esophagitis presence: without esophagitis Qualified Code(s): K21.9 - Gastro -esophageal reflux disease without esophagitis Comment/Plan: Continue PPI (6) Abnormal CT scan, chest Acute R93.8 - ABNORMAL FINDINGS ON DIAGNOSTIC IMAGING OF BODY STRUCTURES Comment/Plan: Pulmonary to see (7) Dyslipidemia Acute E78.5 - HYPERLIPIDEMIA, UNSPECIFIED Comment/Plan: Continue Zocor Case Care Discussed with: Patient, Consultants, Nursing Staff, Chemical Equipment Controller Education/Counseling Given To: Patient Education/Counseling Given Regarding: Diagnosis, Treatment, Prognosis, Follow Up Total Time: 50 min . Critical Care: No Code: 83567 (12+)
[2016-07-28] MEDS ORDERED: FLUTICASONE/SALMETEROL 500/50 DISKUS INH SCH (12:00)
[2016-07-28] MEDS: POTASSIUM CHLORIDE 20 MEQ TAB PO SCH (12:33)
[2016-07-28] MEDS: METHYLPREDNISOLONE 40 MG/1 ML VIAL IV SCH ×2 (12:37→17:33)
[2016-07-28] MEDS: PANTOPRAZOLE 40 MG TAB PO SCH (17:33)
[2016-07-28] MEDS: FLUTICASONE/SALMETEROL 500/50 DISKUS INH SCH (19:49)
[2016-07-28] MEDS ORDERED: Levofloxacin 750 mg/150 ml D5W 750 MG/150 ML RTU IV SCH (20:00)
[2016-07-28] MEDS: GLARGINE INSULIN (LANTUS) 100 UNITS/ML PEN SQ SCH (20:52)
[2016-07-28] MEDS ORDERED: SIMVASTATIN 10 MG TAB PO SCH (21:00)
[2016-07-28] MEDS ORDERED: MONTELUKAST SODIUM 10 MG TAB PO SCH (21:00)
[2016-07-29] MEDS: Albuterol/Ipratropium Neb 3 ML NEB NEB SCH ×3 (01:49→14:48)
[2016-07-29 03:48] LABS: BLOOD UREA NITROGEN 17 MG/DL (9-20); CALCIUM 8.7 MG/DL (8.4-10.2); CALCULATED OSMOLALITY 276 MOs/Kg (270-290); CHLORIDE 99 mEq/L (98-107); GLUCOSE 277 MG/DL (70-99); SODIUM LEVEL 137 mEq/L (137-146)
[2016-07-29] MEDS: METHYLPREDNISOLONE 40 MG/1 ML VIAL IV SCH ×2 (03:50→11:17)
[2016-07-29 04:51] VITALS: BMI 31.4
[2016-07-29] MEDS: PANTOPRAZOLE 40 MG TAB PO SCH (05:06)
[2016-07-29] MEDS: REGULAR INSULIN 100 UNITS/ML - 3 ML VIAL SQ SCH ×2 (05:06→11:18)
[2016-07-29 05:19] LABS: ABG Draw Site Right Radial; ALLEN'S TEST PASS; BEb 4.4 (+/- 2); TCO2 32.4 MMOL/L (23-27)
[2016-07-29] MEDS: FLUTICASONE/SALMETEROL 500/50 DISKUS INH SCH (08:05)
[2016-07-29] MEDS: CARVEDILOL 12.5 MG TAB PO SCH (09:19)
[2016-07-29] MEDS: LOSARTAN POTASSIUM 50 MG TAB PO SCH (09:19)
[2016-07-29] MEDS: FUROSEMIDE 40 MG TAB PO SCH (09:20)
[2016-07-29] MEDS: AMLODIPINE 10 MG TAB PO SCH (09:20)
[2016-07-29] MEDS: GLARGINE INSULIN (LANTUS) 100 UNITS/ML PEN SQ SCH (09:21)
[2016-07-29 11:12] VITALS: BP 148/81; TEMP 97.6
[2016-07-29] MEDS: POTASSIUM CHLORIDE 20 MEQ TAB PO SCH (11:17)
[2016-07-29 11:38] VITALS: PULSE 72
--- NOTE | 2016-07-29 12:45 | GENMEDPROG ---
Currently: Reports: Cough, Wheezing, BEAVERS, SOB, Sputum, Reflux Sx DVT Prophylaxis: Yes - Physical Examination Vital Signs and I&O: Last Vital Signs Temp 97.6 F 07/29/16 11:11 Pulse 72 07/29/16 11:37 Resp 18 07/29/16 11:11 BP 148/81 07/29/16 11:11 Pulse Ox 98 07/29/16 11:11 Oxygen Pulse Oxygen Saturation 98 O2 Device Nasal Cannula Oxygen Flow Rate 2 Fraction of Inspired Oxygen ( 40 FIO2) Intake & Output 07/26/16 07/27/16 07/28/16 07/29/16 23:59 23:59 23:59 23:59 Intake Total 2580 Output Total 2975 Balance -395 Patient's weight 91.824 kg 91.036 kg General: Alert, Oriented x3, Cooperative, Mild distress HEENT: Normal, PERRLA, EOMI, Anicteric Sclera Neck: Non-tender, No Masses palpable, Limited range of motion Lymphatics: Normal (no adenopathy) Respiratory: Accessory Muscle Use, Wheezes Cardiovascular: Regular rate, Normal S1, Normal S2, Murmurs GI: Normal bowel sounds, Soft, Non tender Extremities/Musculoskeletal: Normal pulses, DJD Skin: Warm,Dry and Intact, No rashes, No breakdown, No significant lesion Neurological: Normal speech, Normal tone, Cranial nerves 3-12 NL Psych/Mental Status: Anxious
--- NOTE | 2016-07-29 13:26 | PCM.DCS92 ---
- Final/Secondary Discharge Diagnosis (1) Acute and chronic respiratory failure with hypoxia Acute J96.21 - ACUTE AND CHRONIC RESPIRATORY FAILURE WITH HYPOXIA Present on Admission: Yes Comment: Continue O2 nebs and pulmonary toilet. Continue steroid taper. Add inhaled steroids. Follow up with Dr. Lafleur in his office. (2) Interstitial lung disease Acute J84.9 - INTERSTITIAL PULMONARY DISEASE, UNSPECIFIED Present on Admission: Yes Comment: CT scan suggests interstitial lung disease. May be the etiology of his recurrent shortness of breath. Unclear if this is asthma, pulmonary fibrosis, or acute pneumonitis. He has had pulmonology consult and bronchoscopy. Continue steroid taper and PO antibiotics. Follow up with Dr. Lafleur in his office. (3) Lower respiratory infection Acute J22 - UNSPECIFIED ACUTE LOWER RESPIRATORY INFECTION Present on Admission: Yes Comment: Discharge on p.o. 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 Adjust insulin, continue ADA diet, F/U with Dr. Khan in office. (5) HTN (hypertension) Acute I10 - ESSENTIAL (PRIMARY) HYPERTENSION Present on Admission: Yes essential hypertension I10 - Essential (primary) hypertension Comment: Continue meds (amlodipine, Losartan, Coreg) keep SBP less than 140 (6) GERD (gastroesophageal reflux disease) Acute K21.9 - GASTRO-ESOPHAGEAL REFLUX DISEASE WITHOUT ESOPHAGITIS Present on Admission: Yes without esophagitis K21.9 - Gastro-esophageal reflux disease without esophagitis Comment: Continue PPI (7) Dyslipidemia Acute E78.5 - HYPERLIPIDEMIA, UNSPECIFIED Present on Admission: Yes Comment: Continue Zocor Discharge Disposition: Home Discharge Condition: Improved Cognitive Discharge Status: Unimpaired Fuctional Discharge Status: Independent Physician Follow up/Referrals: Jose Khan MD [Primary Care Provider] - One Week Home Medications / New Prescriptions: New Benzonatate [Tessalon] 100 mg PO TID PRN #90 capsule PRN Reason: Cough - First Option Fluticasone/Salmeterol [Advair 500-50] 1 puff INH RTBID #1 inhaler Insulin Glargine [Lantus Pen] 60 units SQ BID #1 pen Insulin, Regular [Humulin R] 4 units SQ ACHS #2 vial Levofloxacin [Levaquin] 750 mg PO DAILY #10 tablet Pantoprazole Sodium [Protonix] 40 mg PO 0600,1800 #60 tablet Prednisone [Deltasone, Orasone] 10 mg PO QDPC #30 tablet Continue Glimepiride [Amaryl] 4 mg PO BID MetFORMIN (Immediate Release) [GLUCOPHAGE Immed Release] 1,000 mg PO BID Simvastatin [Zocor] 10 mg PO QHS Carvedilol [Coreg] 12.5 mg PO BID #60 tablet Furosemide [Lasix] 40 mg PO BID #60 tab Losartan Potassium [Cozaar] 100 mg PO DAILY Amlodipine Besylate 10 mg PO DAILY Potassium Chloride [Klor-Con M20] 20 meq PO DAILY Doxazosin Mesylate 1 mg PO DAILY Albuterol/Ipratropium Neb [Duoneb] 3 ml NEB RTQ6 #120 nebu Aspirin (Enteric Coated) [Halfprin] 81 mg PO DAILY Discontinued Insulin Glargine [Lantus Pen] 40 units SQ BID Doxycycline Hyclate [Vibramycin] 100 mg PO BID O2 Device: Nasal Cannula Oxygen Flow Rate: 2 Oxygen to be used after Discharge: Continuous Diet at Discharge: Cardiac, Low Salt, Diabetic, 2200 Calorie Activity: As Tolerated Call Office For: Worsening Symptoms, Fever over 101 F, Pain Uncontrolled By Meds Discontinue use of:: Alcohol, All Types of Tobacco - DC Summary Notes Hospital Course Note:: Discharge summary on patient named MATHIEU CARMONA admitted to [facility] on 07/27/16 by Bruce Doe MD. Date of discharge is []. The patient is a 70 yo man, life-long non-smoker, who presents with shortness of breath and severe coughing. Mild chest pain but only when he coughs. He reports that he has had other episodes of the severe coughing with shortness of breath, and was hospitalized for it several years ago, but he thinks that it was never really determined what was causing the problem. A former primary care physician told him that it was due to allergies and from breathing the air in [facility] (where he lived until about 3 years ago). He was also told that he has asthma, but he does not believe that; he had an old inhaler at his house and started using it recently because he was more short of breath. He has been tested for sleep apnea, and reports that he did try a mask, but he just does not believe he has sleep apnea (although he reports the test was positive). He states that he wants to get to the bottom of this mystery of what is causing these periodic episodes of severe coughing and shortness of breath. CT scan suggests interstitial lung disease. It is markedly abnormal. May be the etiology of his recurrent shortness of breath. Unclear if this is asthma, pulmonary fibrosis, or acute pneumonitis. He has had a pulmonology consult and bronchoscopy. Currently he is breathing better and is no longer wheezing. Continue steroid taper and PO antibiotics. Follow up with Dr. Lafleur in his office. He also has diabetes mellitus which is poorly controlled, hemoglobin A1c 11.9. Adjusted his insulin, continue ADA diet, F/U with Dr. Khan in office. We will discharge him home on a slightly higher dose of Lantus and sliding scale insulin, although this may need to be decreased again when he is off the steroids. He will also have PO antibiotics (Levaquin) at discharge. Code: [id number] (>30min.) - Physical Exam Vital Signs: Last Vital Signs Temp 97.6 F 07/29/16 11:11 Pulse 72 07/29/16 11:37 Resp 18 07/29/16 11:11 BP 148/81 07/29/16 11:11 Pulse Ox 98 07/29/16 11:11 Oxygen Pulse Oxygen Saturation 98 O2 Device Nasal Cannula Oxygen Flow Rate 2 Fraction of Inspired Oxygen ( 40 FIO2) Constitutional: Alert (Awake), No apparent distress Oriented to: Time, Person, Place - HEENT Head: Normal ( normocephalic) Eye: Normal (PERRL, EOMI, Sclera white) Oropharynx: Normal (Pharynx:Moist without exudate,Gums-no swelling) Tympanic Membrane: Normal ENT EAC: Normal TMJ: Normal Nose: No Symptoms Reported (septum midline) - Respiratory/Cardiovascular Respiratory: Normal - CTA, Diminished Cardiovascular: Normal - GI Auscultation: Normal (NABS) Palpation: Normal (Soft,No rebound or guarding, non distended) Tenderness: Non tender Martins's Sign: Negative Rectal Exam: Deferred - Musculoskeletal Back: Normal (Non-Tender) Extremities: Normal (Normal tone, Pulses 2+ No cyanosis or edema, FROM) - Integumentary Skin: Warm, Dry Lymphatics: Normal (no adenopathy) - Neurologic Memory Impaired: Normal Motor Function: Normal Cranial Nerve: Normal Cerebellar: Normal Mood Description: Normal Thought: Coherent Perception: Normal
[2016-07-29] MEDS ORDERED: DOXAZOSIN MESYLATE 1 MG TAB PO SCH (21:00)
== END 2016-07-29 16:03 | disposition home or self-care (01) | DRG 189 ==
LOC: ED 18:14 → PCU 23:44
PROVIDERS: ADMIT Internal Medicine; ATTEND Family Medicine
PROC: 039B3ZZ Drainage of Right Radial Artery, Percutaneous Approach (ICD-10-PCS; principal; 2016-07-27)
PROC: 5A09357 Assistance with Respiratory Ventilation, Less than 24 Consecutive Hours, Continuous Positive Airway Pressure (ICD-10-PCS; 2016-07-28)
DX: J96.21 Acute and chronic respiratory failure with hypoxia (principal); J84.9 Interstitial pulmonary disease, unspecified; E87.2 Acidosis; J84.10 Pulmonary fibrosis, unspecified; E11.65 Type 2 diabetes mellitus with hyperglycemia; J45.21 Mild intermittent asthma with (acute) exacerbation; J22 Unspecified acute lower respiratory infection; Z79.4 Long term (current) use of insulin; I10 Essential (primary) hypertension; K21.9 Gastro-esophageal reflux disease without esophagitis; E78.5 Hyperlipidemia, unspecified; M19.90 Unspecified osteoarthritis, unspecified site; Z79.899 Other long term (current) drug therapy; Z79.82 Long term (current) use of aspirin; G47.33 Obstructive sleep apnea (adult) (pediatric)
CPT/HCPCS: 36415; 36600; 71010; 71275; 80048; 80053; 81001; 82043; 82803; 82962; 83036; 83605; 83735; 83880; 84484; 85025; 85027; 85610; 85730; 87040; 87086; 93005; 94640; 94660; 94664; 96361; 96365; 96372; 96375; 99284; A9698; G0237; J1650; J1956; J2920; J2930; J3490; J7620